=== PATIENT | female | born 1990 | race Caucasian/White ===

== ENCOUNTER 2020-08-29 11:53 | Emergency (ER) | payer MEDICAID, SELFPAY ==
[2020-08-29 13:06] VITALS: BP 148/91; PULSE 148; RESP 16; TEMP 36.9; O2SAT 99; BMI 30.4
--- NOTE | 2020-08-29 13:41 | ECG_ITS ---
Test Reason : ETOH Blood Pressure : / mmHG Vent. Rate : 113 BPM Atrial Rate : 113 BPM P-R Int : 140 ms QRS Dur : 090 ms QT Int : 326 ms P-R-T Axes : 066 041 039 degrees QTc Int : 447 ms Sinus tachycardia Otherwise normal ECG No previous ECGs available Referred By: Generic ED Physician Electronically Signed By:RADHA PRESTON
[2020-08-29] MEDS: 0.9 % Sodium Chloride 1,000 ML 999 ML IV (15:29)
--- NOTE | 2020-08-29 15:29 | ED_ITS ---
HPI - Alcohol General Chief Complaint: ETOH/Substance Use Stated Complaint: detox Time Seen by Provider: 08/29/20 15:19 Source: patient Mode of arrival: ambulatory Limitations: no limitations History of Present Illness HPI narrative: 30-year-old female who denies any past medical or surgical history presenting to review triage brought in by her mother for seeking alcohol detox. States due to the pandemic over the past year she has been very much isolated and due to this she has been drinking vodka about 1 pt a day and she would like detox. Last drink was at 09:00 this morning (several hours prior to arrival) no prior history of withdrawal. She currently denies any other complaints. MD complaint: alcohol intoxication and desires rehab Last drink: Unknown (Over the past year) Amount of alcohol consumed: A pt of vodka a day Chronic alcohol use: Yes Previous visits for alcohol intoxication: No Recent trauma: No Associated symptoms: denies other symptoms Treatments prior to arrival: none Related Data Previous Rx's Medication Instructions Recorded chlordiazepoxide HCl 5 mg PO Q8H PRN #14 cap 08/29/20 Allergies Allergy/AdvReac Type Severity Reaction Status Date / Time No Known Allergies Allergy Verified 08/29/20 15:27 Review of Systems 2 Review of Systems: Constitutional: No Weight loss, No Fever, No Chills, No Night Sweats, No Fatigue, No Malaise ENT/Mouth: No Hearing loss, No Ear Pain, No Nasal Congestion, No Sinus Pain, No Hoarseness, No sore throat, No Rhinorrhea, No Swallowing Difficulty Eyes: No Eye Pain, No Swelling, No Redness, No Foreign Body, No Discharge, No Vision Changes Cardiovascular: No Chest Pain, No SOB, No Dyspnea on Exertion, No Orthopnea, No Edema, No Palpitations Respiratory: No Cough, No Sputum, No Wheezing, No Smoke Exposure, No Dyspnea Gastrointestinal: No Nausea, No Vomiting, No Diarrhea, No Constipation, No abdominal Pain, No Hematochezia, No Melena Genitourinary: no irregular bleeding, No Dysuria, No Urinary Frequency, No Hematuria, No Urinary Incontinence, No Urgency, No Flank Pain, No Urinary Flow Changes, No Hesitancy Musculoskeletal: No joint pain, No Myalgias, No Joint Swelling Skin: No Skin Lesions, No rash Neuro: No Weakness, No Numbness, No Paresthesias, No Loss of Consciousness, No Dizziness, No Headache Psych: + Anxiety/Panic, No Depression, No SI/HI/AH/VH, No Social Issues Heme/Lymph: No Bruising, No Bleeding,No Lymphadenopathy Endocrine: No Polyuria, No Polydipsia, No Temperature Intolerance Yes all other systems are reviewed and are negative [facility] Past Medical History Medical History Anxiety Social History Social History Alcohol intake: current Alcohol intake frequency: a few times a month Alcohol type: hard liquor Smoking Status: Never smoker Use of substances other than those prescribed or required for medical reasons: No Advance Directives: No Advance Directives Information Provided: No Physical Exam Vital Signs: Vital Signs: Last Vital Signs Temp 98.2 F 08/29/20 17:16 Pulse 119 H 08/29/20 18:57 Resp 14 08/29/20 18:57 BP 131/82 08/29/20 18:57 Pulse Ox 99 08/29/20 18:57 Body Mass Index 30.4 Reviewed Const: Other: Bedside monitor tachycardic at 105 Giggling and smiling General: cooperative; No acute distress or intoxicated appearing Nutritional Appearance: average body habitus Orientation/consciousness: patient oriented x3 HENMT: Head: Yes normal to inspection Ears: hearing grossly normal bilaterally Eyes: General: appearance normal, both eyes and all related structures Visual Lei: normal visual lei by confrontation Neck: Neck: Yes normal visual inspection, No positive Brudzinski's sign, No positive Kernig's sign and No tender Thyroid: Thyroid normal Chest: Chest palpation & inspection: normal inspection of the chest Resp: Effort & Inspection: normal respiratory effort Auscultation: clear to auscultation bilaterally Cardio: Jugular venous distension: no JVD Rhythm: regular rhythm Heart sounds: S1 normal heart sound present and S2 normal heart sound present GI: Inspection: Yes normal to inspection Palpation (GI): Soft to palpation Percussion: Yes normal to percussion Auscultation: normal bowel sounds : General: Yes no CVA tenderness Back/Spine/Pelvis: Back: no CVA tenderness Skin: General skin exam: no rashes or lesions noted Neuro: General: patient oriented x3 Extrem: General: Yes normal to inspection Course Course Course Narrative: Labs with very slight hypokalemia was repleted also given banana bag equivalent. Has been resting comfortably in ED, alcohol in the high 200s. Patient was allowed to sleep in the ED for several hours after she was clinically sober evaluate the detox She states she has not want to go to detox she has been there once before and does not feel well. Would like to go home she does not have much of any withdrawal symptoms if she when she stops drinking. She plans on stopping drinking. She is requesting discharge with her mother. Aware that I can give her short course of Librium but she can not drink and to return if there is any concerns aware that that she has a higher success rate and I recommend her going to a controlled environment such as a detox center. Consultations Consultation #1: Peer assistant track coach MDM - Alcohol Lab Data Result diagrams: 08/29/20 15:37 08/29/20 15:36 Labs: Lab Results 08/29/20 08/29/20 08/29/20 Range/Units 15:36 15:36 15:37 WBC 4.8 (4.8-10.8) X10*3/uL RBC 4.45 (4.20-5.50) X10*6/uL Hgb 14.8 (12.0-16.0) g/dl Hct 43.1 (37-47) % MCV 96.9 (80-98) fL MCH 33.3 H (27.0-33.0) pg MCHC 34.3 (31.0-35.0) g/dl RDW 12.7 (11.0-16.0) % Plt Count 172 (160-400) X10*3/uL MPV 10.8 (9.4-12.3) fL Immature Gran % (Auto) 0.2 (0.0-0.4) % Neut % (Auto) 52.3 (45-73) % Lymph % (Auto) 40.9 H (20-40) % [place] % (Auto) 5.6 (2-11) % Eos % (Auto) 0.6 (0-4) % Baso % (Auto) 0.4 (0-2) % Lymph # (Auto) 2.0 (1.2-4.9) X10*3/uL [place] # (Auto) 0.3 (0.1-1.2) X10*3/uL Eos # (Auto) 0.0 (0.0-0.4) X10*3/uL Baso # (Auto) 0.0 (0.0-0.2) X10*3/uL Abs Immat Gran (auto) 0.01 (0.00-0.03) X10*3/uL Absolute Neuts (auto) 2.5 (2.0-8.3) X10*3/uL Absolute Nucleated RBC 0.000 (0.0-0.012) X10*3/uL Nucleated RBC % (auto) 0.0 (0.0-0.2) /100WBC Sodium 144 (135-145) mmol/L Potassium 3.2 L (3.3-5.1) mmol/L Chloride 101 (96-108) mmol/L Carbon Dioxide 23 (22-29) mmol/L Anion Gap 23 H (12-20) BUN 6 L (9-16) mg/dL Creatinine 0.64 (0.5-1.4) mg/dL Estim Creat Clear Calc 150.0 Estimated GFR > 60 Random Glucose 82 (60-115) mg/dL Calcium 9.0 (8.4-10.2) mg/dL Magnesium 1.9 (1.6-2.6) mg/dL Total Bilirubin 0.5 (0.0-1.0) mg/dL AST 78 H (5-31) U/L ALT 129 H (0-31) U/L Alkaline Phosphatase 68 (39-117) U/L Total Protein 7.6 (6.5-8.0) g/dL Albumin 4.6 (3.5-5.0) g/dL Lipase 8 (8-78) U/L Ethyl Alcohol 247 mg/dL Discharge Plan Discharge Clinical Impression: Alcoholic intoxication Patient Disposition: Home, Self-Care Instructions: Alcohol Intoxication (ED), Abuse of Alcohol (ED) Additional Instructions: Please go directly to detox Return if any concerns or worsening symptoms Follow-up with primary care doctor Thank Prescriptions: New chlordiazepoxide HCl 5 mg capsule 5 mg PO Q8H PRN (Reason: anxiety/alcohol withdrawal) Qty: 14 RF: 0 Referrals: George Farrell MD [Primary Care Provider] - 2 days
[2020-08-29 15:47] LABS: MANUAL DIFF FLAG NO
[2020-08-29] MEDS: LORazepam 2 MG/ML VIAL 1 MG IVPUSH (15:49)
[2020-08-29] MEDS: Folic Acid 1 MG TABLET PO (15:49)
[2020-08-29] MEDS: Thiamine HCL 100 MG TABLET PO (15:49)
[2020-08-29 15:54] LABS: Basophils Percent Auto 0.4 % (0-2); Eosinophils Percent Auto 0.6 % (0-4); Hematocrit 43.1 % (37-47); Hemoglobin 14.8 g/dl (12.0-16.0); Imm Gran Abs Auto 0.01 X10*3/uL (0.00-0.03); Imm Gran Pct Auto 0.2 % (0.0-0.4); Lymphocytes Percent Auto 40.9 % (20-40); Mean Corpuscular HGB Conc 34.3 g/dl (31.0-35.0); Mean Corpuscular Hemoglobin 33.3 pg (27.0-33.0); Mean Corpuscular Volume 96.9 fL (80-98); Mean Platelet Volume 10.8 fL (9.4-12.3); Monocytes Absolute Auto 0.3 X10*3/uL (0.1-1.2); Monocytes Percent Auto 5.6 % (2-11); Neutrophils Absolute Auto 2.5 X10*3/uL (2.0-8.3); Neutrophils Percent Auto 52.3 % (45-73); Platelet Count 172 X10*3/uL (160-400); Red Blood Count 4.45 X10*6/uL (4.20-5.50); Red Cell Distribution Width 12.7 % (11.0-16.0); White Blood Count 4.8 X10*3/uL (4.8-10.8)
[2020-08-29 16:14] LABS: Ethanol 247 mg/dL
[2020-08-29 16:20] LABS: Alanine Aminotransferase 129 U/L (0-31); Albumin Level 4.6 g/dL (3.5-5.0); Alkaline Phosphatase 68 U/L (39-117); Aspartate Amino Transferase 78 U/L (5-31); Bilirubin Total 0.5 mg/dL (0.0-1.0); Blood Urea Nitrogen 6 mg/dL (9-16); Estimated Glomerular Filt Rate > 60; Glucose Random 82 mg/dL (60-115); Total Protein 7.6 g/dL (6.5-8.0)
[2020-08-29 16:29] LABS: Anion Gap 23 (12-20); Carbon Dioxide 23 mmol/L (22-29); Chloride 101 mmol/L (96-108); Potassium 3.2 mmol/L (3.3-5.1); Sodium 144 mmol/L (135-145)
[2020-08-29 17:16] VITALS: BP 117/67; PULSE 98; RESP 14; TEMP 36.8; O2SAT 96
[2020-08-29] MEDS: Potassium Chloride ER 20 MEQ TAB.ER.PRT 40 MEQ PO (17:17)
[2020-08-29 17:41] LABS: Lipase 8 U/L (8-78); Magnesium 1.9 mg/dL (1.6-2.6)
--- NOTE | 2020-08-29 17:53 | MHC.RECOVSUP ---
? Reason for consult Detox o Current location: ED19 o Identified substance use concern: alcohol - Support ? Intervention: o Community resources provided o Harm reduction discussion ? Plan: o Patient to follow up with H after discharge ? Additional information: Patient denied going to detox... Provided patient with resources..
[2020-08-29 18:57] VITALS: BP 131/82; PULSE 119; RESP 14; O2SAT 99
== END 2020-08-29 20:27 | disposition home or self-care (01) ==
PROVIDERS: Nurse Practitioner Primary Care; Emergency Provider Emergency Medicine; PCP Family Medicine
DX: F10.120 Alcohol abuse with intoxication, uncomplicated (principal); Y90.8 Blood alcohol level of 240 mg/100 ml or more; E87.6 Hypokalemia; R00.0 Tachycardia, unspecified; F41.9 Anxiety disorder, unspecified
CPT/HCPCS: 36415; 80053; 80320; 83690; 83735; 85025; 93005; 96361; 96372; 96374; 99284; 99285; J2060

== ENCOUNTER 2020-09-09 13:27 | Emergency (ER) | payer MEDICAID, SELFPAY ==
--- NOTE | 2020-09-09 13:49 | ED_ITS ---
HPI - Psych General Chief Complaint: ETOH/Substance Use Stated Complaint: crisis Time Seen by Provider: 09/09/20 13:49 Source: patient Mode of arrival: ambulatory Limitations: no limitations History of Present Illness HPI Narrative: 30-year-old female who is history of alcohol abuse recently seen her on August 29 for seeking detox she presents with essentially same complaint today states she has tried: Several detox is and was unable to and was brought in by the direction of her mother to get assistance with detox here. She admits to drinking several hours prior to her of her she is admitting that she is very anxious and otherwise denies any other medical complaints. 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 She otherwise denies any SI or HI. No recent illnesses, injury/fall. MD complaint: alcohol abuse Onset (ago): week(s) Duration: intermittent History of same: Yes Relieving factors: none Exacerbating factors: none Context: recent alcohol abuse Associated psychiatric symptoms: none Associated symptoms: denies other symptoms Treatments prior to arrival: none Related Data Previous Rx's Medication Instructions Recorded chlordiazepoxide HCl 5 mg PO Q8H PRN #14 cap 08/29/20 Allergies Allergy/AdvReac Type Severity Reaction Status Date / Time No Known Allergies Allergy Verified 08/29/20 15:27 Review of Systems Review of Systems: Constitutional: No Weight loss, No Fever, No Chills, No Night Sweats, No Fatigue, No Malaise ENT/Mouth: No Hearing loss, No Ear Pain, No Nasal Congestion, No Sinus Pain, No Hoarseness, No sore throat, No Rhinorrhea, No Swallowing Difficulty Eyes: No Eye Pain, No Swelling, No Redness, No Foreign Body, No Discharge, No Vision Changes Cardiovascular: No Chest Pain, No SOB, No Dyspnea on Exertion, No Orthopnea, No Edema, No Palpitations Respiratory: No Cough, No Sputum, No Wheezing, No Smoke Exposure, No Dyspnea Gastrointestinal: No Nausea, No Vomiting, No Diarrhea, No Constipation, No abdominal Pain, No Hematochezia, No Melena Genitourinary: No Dysuria, No Urinary Frequency, No Hematuria, No Urinary Incontinence, No Urgency, No Flank Pain, No Urinary Flow Changes, No Hesitancy Musculoskeletal: No joint pain, No Myalgias, No Joint Swelling Skin: No Skin Lesions, No rash Neuro: No Weakness, No Numbness, No Paresthesias, No Loss of Consciousness, No Dizziness, No Headache Psych: No Anxiety/Panic, No Depression, No SI/HI/AH/VH Heme/Lymph: No Bruising, No Bleeding,No Lymphadenopathy Endocrine: No Polyuria, No Polydipsia, No Temperature Intolerance Yes all other systems are reviewed and are negative [facility] Past Medical History Medical History Anxiety Social History Social History Alcohol intake: current Alcohol intake frequency: 3 or more drinks per day Alcohol type: hard liquor Smoking Status: Never smoker Advance Directives: No Advance Directives Information Provided: No Physical Exam Vital Signs: Vital Signs: Last Vital Signs Temp 100.1 F 09/09/20 14:27 Pulse 138 H 09/09/20 14:27 Resp 18 09/09/20 14:27 BP 157/90 H 09/09/20 14:27 Pulse Ox 98 09/09/20 14:27 Body Mass Index 30.5 Patient was tachycardic and tearful upon arrival admits to being anxious hence the elevated heart rate but when she was talking to me her heart rate became lower as she come down at 99 BPM. Also temperature was 100.1 degrees temp orally however Orally was 98.2. Const: Other: Odor of EtOH General: cooperative and anxious; No acute distress or intoxicated appearing Nutritional Appearance: average body habitus Orientation/consciousness: patient oriented x3 HENMT: Head: Yes normal to inspection Ears: hearing grossly normal bilaterally Eyes: General: appearance normal, both eyes and all related structures Visual Lamar: normal visual lamar by confrontation Neck: Neck: Yes normal visual inspection, No positive Brudzinski's sign, No positive Kernig's sign and No tender Thyroid: Thyroid normal Chest: Chest palpation & inspection: normal inspection of the chest Resp: Effort & Inspection: normal respiratory effort Cardio: Jugular venous distension: no JVD Rhythm: regular rhythm Heart sounds: S1 normal heart sound present and S2 normal heart sound present GI: Inspection: Yes normal to inspection Palpation (GI): Soft to palpation Percussion: Yes normal to percussion Auscultation: normal bowel sounds : General: Yes no CVA tenderness Back/Spine/Pelvis: Back: no CVA tenderness Skin: General skin exam: no rashes or lesions noted Neuro: General: patient oriented x3 Extrem: General: Yes normal to inspection Course Reevaluation(s) Reevaluation #1: She is open to getting assistance from us in getting detox. Agrees to medical screening labs for clearance for detox center and speaking to football coach. Reevaluation #2: She male with football coach she declined their services she states she warranted a ?sleep it off? She is requesting discharge. Her alcohol upon arrival was 292 she has been sleeping for past 2 hours with stable vitals and offers no other complaints. Will be discharged home with parents. Consultations Consultation #1: Peer football coach MDM - Psych Lab Data Result diagrams: 09/09/20 14:28 09/09/20 14:28 Labs: Lab Results 09/09/20 09/09/20 09/09/20 Range/Units 14:28 14:28 14:28 WBC 4.4 L (4.8-10.8) X10*3/uL RBC 4.52 (4.20-5.50) X10*6/uL Hgb 15.2 (12.0-16.0) g/dl Hct 44.5 (37-47) % MCV 98.5 H (80-98) fL MCH 33.6 H (27.0-33.0) pg MCHC 34.2 (31.0-35.0) g/dl RDW 12.7 (11.0-16.0) % Plt Count 278 D (160-400) X10*3/uL MPV 10.1 (9.4-12.3) fL Immature Gran % (Auto) 0.2 (0.0-0.4) % Neut % (Auto) 50.9 (45-73) % Lymph % (Auto) 42.5 H (20-40) % [place] % (Auto) 4.6 (2-11) % Eos % (Auto) 0.7 (0-4) % Baso % (Auto) 1.1 (0-2) % Lymph # (Auto) 1.9 (1.2-4.9) X10*3/uL [place] # (Auto) 0.2 (0.1-1.2) X10*3/uL Eos # (Auto) 0.0 (0.0-0.4) X10*3/uL Baso # (Auto) 0.1 (0.0-0.2) X10*3/uL Abs Immat Gran (auto) 0.01 (0.00-0.03) X10*3/uL Absolute Neuts (auto) 2.2 (2.0-8.3) X10*3/uL Absolute Nucleated RBC 0.000 (0.0-0.012) X10*3/uL Nucleated RBC % (auto) 0.0 (0.0-0.2) /100WBC Sodium 147 H (135-145) mmol/L Potassium 3.7 (3.3-5.1) mmol/L Chloride 106 (96-108) mmol/L Carbon Dioxide 22 (22-29) mmol/L Anion Gap 23 H (12-20) BUN 7 L (9-16) mg/dL Creatinine 0.73 (0.5-1.4) mg/dL Estim Creat Clear Calc 131.8 Estimated GFR > 60 Random Glucose 82 (60-115) mg/dL Calcium 9.4 (8.4-10.2) mg/dL Total Bilirubin 0.3 (0.0-1.0) mg/dL AST 27 D (5-31) U/L ALT 45 H (0-31) U/L Alkaline Phosphatase 72 (39-117) U/L Total Protein 7.8 (6.5-8.0) g/dL Albumin 4.8 (3.5-5.0) g/dL Ethyl Alcohol mg/dL COVID-19 ([facility]) Negative (Negative) COVID-19 Clin Com See Note 09/09/20 Range/Units 14:28 WBC (4.8-10.8) X10*3/uL RBC (4.20-5.50) X10*6/uL Hgb (12.0-16.0) g/dl Hct (37-47) % MCV (80-98) fL MCH (27.0-33.0) pg MCHC (31.0-35.0) g/dl RDW (11.0-16.0) % Plt Count (160-400) X10*3/uL MPV (9.4-12.3) fL Immature Gran % (Auto) (0.0-0.4) % Neut % (Auto) (45-73) % Lymph % (Auto) (20-40) % [place] % (Auto) (2-11) % Eos % (Auto) (0-4) % Baso % (Auto) (0-2) % Lymph # (Auto) (1.2-4.9) X10*3/uL [place] # (Auto) (0.1-1.2) X10*3/uL Eos # (Auto) (0.0-0.4) X10*3/uL Baso # (Auto) (0.0-0.2) X10*3/uL Abs Immat Gran (auto) (0.00-0.03) X10*3/uL Absolute Neuts (auto) (2.0-8.3) X10*3/uL Absolute Nucleated RBC (0.0-0.012) X10*3/uL Nucleated RBC % (auto) (0.0-0.2) /100WBC Sodium (135-145) mmol/L Potassium (3.3-5.1) mmol/L Chloride (96-108) mmol/L Carbon Dioxide (22-29) mmol/L Anion Gap (12-20) BUN (9-16) mg/dL Creatinine (0.5-1.4) mg/dL Estim Creat Clear Calc Estimated GFR Random Glucose (60-115) mg/dL Calcium (8.4-10.2) mg/dL Total Bilirubin (0.0-1.0) mg/dL AST (5-31) U/L ALT (0-31) U/L Alkaline Phosphatase (39-117) U/L Total Protein (6.5-8.0) g/dL Albumin (3.5-5.0) g/dL Ethyl Alcohol 292 mg/dL COVID-19 ([facility]) (Negative) COVID-19 Clin Com Discharge Plan Discharge Clinical Impression: Alcohol abuse Alcoholic intoxication Qualifiers: Complication of substance-induced condition: with unspecified complication Qualified Code(s): F10.929 - Alcohol use, unspecified with intoxication, unspecified Patient Disposition: Home, Self-Care Instructions: Alcohol Use Disorder (ED) Additional Instructions: Please stop drinking alcohol as this can cause serious harm to health and even Please Dr. ahn Please return if any concerns or worsening symptoms Follow-up closely with her primary doctor in the next 1-2 days Return to emergency room again if she needed any further assistance Thank you Prescriptions: No Action chlordiazepoxide HCl 5 mg capsule 5 mg PO Q8H PRN (Reason: anxiety/alcohol withdrawal) Qty: 14 RF: 0 Referrals: George Farrell MD [Primary Care Provider] - 1 day
[2020-09-09 13:58] VITALS: BP 127/90; PULSE 115; RESP 18; TEMP 37.1; O2SAT 96
[2020-09-09 14:07] VITALS: BP 157/90; PULSE 138; RESP 18; TEMP 37.8; O2SAT 98; BMI 30.5
--- NOTE | 2020-09-09 14:15 | PC.NURSE ---
Pt meeting with alcon mace at current
[2020-09-09] MEDS: LORazepam 1 MG TABLET PO (14:22)
[2020-09-09 14:27] VITALS: BP 157/90; PULSE 138; RESP 18; TEMP 37.8; O2SAT 98
[2020-09-09 14:33] LABS: MANUAL DIFF FLAG NO
[2020-09-09 14:34] LABS: Basophils Absolute Auto 0.1 X10*3/uL (0.0-0.2); Basophils Percent Auto 1.1 % (0-2); Eosinophils Percent Auto 0.7 % (0-4); Hematocrit 44.5 % (37-47); Hemoglobin 15.2 g/dl (12.0-16.0); Imm Gran Abs Auto 0.01 X10*3/uL (0.00-0.03); Imm Gran Pct Auto 0.2 % (0.0-0.4); Lymphocytes Absolute Auto 1.9 X10*3/uL (1.2-4.9); Lymphocytes Percent Auto 42.5 % (20-40); Mean Corpuscular HGB Conc 34.2 g/dl (31.0-35.0); Mean Corpuscular Hemoglobin 33.6 pg (27.0-33.0); Mean Corpuscular Volume 98.5 fL (80-98); Mean Platelet Volume 10.1 fL (9.4-12.3); Monocytes Absolute Auto 0.2 X10*3/uL (0.1-1.2); Monocytes Percent Auto 4.6 % (2-11); Neutrophils Absolute Auto 2.2 X10*3/uL (2.0-8.3); Neutrophils Percent Auto 50.9 % (45-73); Platelet Count 278 X10*3/uL (160-400); Red Blood Count 4.52 X10*6/uL (4.20-5.50); Red Cell Distribution Width 12.7 % (11.0-16.0); White Blood Count 4.4 X10*3/uL (4.8-10.8)
--- NOTE | 2020-09-09 14:37 | MHC.RECOVSUP ---
Recovery Support note: Patient is a 30 year old Turkish speaking female who presented [place] [facility] seeking [place]. This rewriter met with patient in the [facility]BH pod to discuss alcohol use and treatment options. Patient reports drinking 10 drinks a day. Patient reports she has been to detox before and that it doesn't do anything for me. Explained to patient how every if she does not get much out of the groups, it is still important to be medically supervised while undergoing alcohol withdrawal. Patient acknowledged and stated that she could not find a bed so she figured she would come to the emergency department. Patient reported to this rewriter that she will most likely not stick around long enough to get a detox bed and reiterated that detox is not helpful for her. Discussed case with patient's RN and ED provider. This rewriter will follow up with patient later on to see if she is interested in detox at that point.
[2020-09-09 14:51] LABS: COVID-19 Test Negative (Negative)
[2020-09-09 14:54] LABS: Ethanol 292 mg/dL
[2020-09-09 15:26] LABS: Alanine Aminotransferase 45 U/L (0-31); Albumin Level 4.8 g/dL (3.5-5.0); Alkaline Phosphatase 72 U/L (39-117); Anion Gap 23 (12-20); Aspartate Amino Transferase 27 U/L (5-31); Bilirubin Total 0.3 mg/dL (0.0-1.0); Blood Urea Nitrogen 7 mg/dL (9-16); Calcium 9.4 mg/dL (8.4-10.2); Carbon Dioxide 22 mmol/L (22-29); Chloride 106 mmol/L (96-108); Creatinine Clr Calc Pharmacy 131.8; Estimated Glomerular Filt Rate > 60; Glucose Random 82 mg/dL (60-115); Potassium 3.7 mmol/L (3.3-5.1); Sodium 147 mmol/L (135-145); Total Protein 7.8 g/dL (6.5-8.0)
--- NOTE | 2020-09-09 16:29 | MHC.RECOVSUP ---
Recovery Support note: This freelance copywriter followed up with patient prior to discharge to discuss treatment options. Patient is familiar with recovery supports and the detox referral process and reports she does not need any information or resources at this time. Encouraged patient to consider herself and what will work well for her to support her recovery. Patient acknowledged.
== END 2020-09-09 16:41 | disposition home or self-care (01) ==
PROVIDERS: Nurse Practitioner Primary Care; Emergency Provider Emergency Medicine; PCP Family Medicine
DX: F10.120 Alcohol abuse with intoxication, uncomplicated (principal); Y90.8 Blood alcohol level of 240 mg/100 ml or more; Z20.822 Contact with and (suspected) exposure to COVID-19; R50.9 Fever, unspecified; F41.9 Anxiety disorder, unspecified; R00.0 Tachycardia, unspecified
CPT/HCPCS: 36415; 80053; 80320; 85025; 87635; 99284; 99285

== ENCOUNTER 2020-10-09 18:08 | Emergency (ER) | payer MEDICAID, SELFPAY ==
[2020-10-09 18:18] VITALS: BP 147/101; PULSE 127; RESP 16; TEMP 35.6; O2SAT 98; BMI 30.4
[2020-10-09 20:00] VITALS: BP 144/87; PULSE 120; RESP 16; TEMP 35.6; O2SAT 98
--- NOTE | 2020-10-09 21:08 | ED.ALCOHOL ---
HPI - Alcohol General Chief Complaint: ETOH/Substance Use Stated Complaint: mult symptoms Time Seen by Provider: 10/09/20 21:06 Source: patient Mode of arrival: ambulatory History of Present Illness HPI narrative: 30F PMH anxiety and alcohol dependence p/w request for alcohol detox. She denies any suicidal or homicidal ideation and tried calling outpatient programs prior to asking her mother to bring her to the ER. She denies any fevers, chills, SOB, chest pain, GI or symptoms. Related Data Previous Rx's Medication Instructions Recorded chlordiazepoxide HCl 5 mg capsule 5 mg PO Q8H PRN #14 cap 09/09/20 Allergies Allergy/AdvReac Type Severity Reaction Status Date / Time No Known Allergies Allergy Verified 08/29/20 15:27 Review of Systems Review of Systems: Pertinent positives and negatives as stated in HPI and 10 point ROS is otherwise negative. [facility] Past Medical History Source: nursing notes reviewed Medical History Anxiety Social History Social History Alcohol intake: current Alcohol intake frequency: 3 or more drinks per day Alcohol type: hard liquor Smoking Status: Never smoker Use of substances other than those prescribed or required for medical reasons: No Advance Directives: No Patient : No Physical Exam Vital Signs: Vital Signs: Last Vital Signs Temp 97.7 F 10/09/20 22:00 Pulse 102 H 10/10/20 03:56 Resp 20 10/10/20 03:56 BP 132/76 10/10/20 03:56 Pulse Ox 99 10/10/20 03:56 Body Mass Index 30.4 VITAL SIGNS: Reviewed. GENERAL: Well developed, well nourished, in no acute distress. HEAD: Normocephalic/atraumatic EYES: PERRLA, EOMI EARS: Ext canals without abnormality NOSE: Nares patent bilateral OROPHARYNX: no oral lesions noted, posterior pharynx clear NECK: Supple, no adenopathy LUNGS: Normal breath sounds. No adventitious sounds or accessory muscle use. SpO2<98> CARDIOVASCULAR: Regular rate and rhythm without noted murmurs ABDOMEN: Soft, non-tender, non-distended with bowel sounds. PSYCH: Tearful, normal affect, logical thought process Course Course Course Narrative: 30-year-old female history and clinical presentation consistent with alcohol dependence and requesting outpatient detox. In addition, patient is currently experiencing nausea and vomiting secondary to alcohol ingestion. Review of all investigations negative for acute findings, the noted elevated glucose likely secondary to patient's ingestion Kazakh dry arturo ozzie prior to presentation. Nausea and vomiting controlled, patient able to tolerate, legal recovery specialist saw the patient and the plan is for her to follow-up and start Vivitrol tomorrow. She declined other outpatient detox options. MDM - Alcohol Lab Data Result diagrams: 10/09/20 21:48 10/09/20 21:48 Labs: Lab Results 10/09/20 10/09/20 10/09/20 Range/Units 21:48 21:48 21:48 WBC 6.3 (4.8-10.8) X10*3/uL RBC 4.02 L (4.20-5.50) X10*6/uL Hgb 14.0 (12.0-16.0) g/dl Hct 39.6 (37-47) % MCV 98.5 H (80-98) fL MCH 34.8 H (27.0-33.0) pg MCHC 35.4 H (31.0-35.0) g/dl RDW 12.9 (11.0-16.0) % Plt Count 334 (160-400) X10*3/uL MPV 10.1 (9.4-12.3) fL Immature Gran % (Auto) 0.2 (0.0-0.4) % Neut % (Auto) 64.3 (45-73) % Lymph % (Auto) 25.3 (20-40) % [place] % (Auto) 8.1 (2-11) % Eos % (Auto) 1.1 (0-4) % Baso % (Auto) 1.0 (0-2) % Lymph # (Auto) 1.6 (1.2-4.9) X10*3/uL [place] # (Auto) 0.5 (0.1-1.2) X10*3/uL Eos # (Auto) 0.1 (0.0-0.4) X10*3/uL Baso # (Auto) 0.1 (0.0-0.2) X10*3/uL Abs Immat Gran (auto) 0.01 (0.00-0.03) X10*3/uL Absolute Neuts (auto) 4.1 (2.0-8.3) X10*3/uL Absolute Nucleated RBC 0.000 (0.0-0.012) X10*3/uL Nucleated RBC % (auto) 0.0 (0.0-0.2) /100WBC Sodium 140 (135-145) mmol/L Potassium 4.2 (3.3-5.1) mmol/L Chloride 100 (96-108) mmol/L Carbon Dioxide 19 L (22-29) mmol/L Anion Gap 25 H (12-20) BUN 6 L (9-16) mg/dL Creatinine 0.72 (0.5-1.4) mg/dL Estim Creat Clear Calc 133.4 Estimated GFR > 60 Random Glucose 202 H D (60-115) mg/dL Calcium 9.1 (8.4-10.2) mg/dL Total Bilirubin 0.5 (0.0-1.0) mg/dL AST 88 H (5-31) U/L ALT 109 H (0-31) U/L Alkaline Phosphatase 73 (39-117) U/L Total Protein 7.8 (6.5-8.0) g/dL Albumin 4.7 (3.5-5.0) g/dL Lipase 15 (8-78) U/L Ethyl Alcohol 252 mg/dL Discharge Plan Discharge Clinical Impression: Alcoholic intoxication Patient Disposition: Home, Self-Care Instructions: Alcohol Dependence (ED), Alcohol Intoxication (ED) Additional Instructions: Follow-up with your primary care provider in the next 1-2 days for re-evaluation. Keep your appointment to start Vivitrol today. Return to the ER for acute worsening of your symptoms. Prescriptions: No Action chlordiazepoxide HCl 5 mg capsule 5 mg PO Q8H PRN (Reason: anxiety/alcohol withdrawal) Qty: 14 RF: 0 Referrals: Physician,None [Primary Care Provider] - 2 days
--- NOTE | 2020-10-09 21:35 | MHC.RECOVSUP ---
? Reason for consult Support o Current location: ED22H o Identified substance use concern: Alcohol - Withdrawal - Support ? Intervention: o Community resources provided o Harm reduction discussion ? Plan: o Referral to [facility] o Follow up tomorrow with [facility] o Patient to follow up with H after discharge ? Additional information: Patient came to the ED looking for help with the withdraw of alcohol.. Patient is interested in starting MAT Vitriol.. I spoke and gave patient information about the [facility]. Patient stated that she willing to give it a try. A follow up call could be needed [phone]
[2020-10-09] MEDS: ondansetron HCL 4 MG/2 ML VIAL IVPUSH ×2 (21:53→22:40)
[2020-10-09] MEDS: 0.9 % Sodium Chloride 2,000 ML 999 ML IV (21:53)
[2020-10-09 21:54] LABS: MANUAL DIFF FLAG NO
[2020-10-09 21:55] LABS: Basophils Absolute Auto 0.1 X10*3/uL (0.0-0.2); Eosinophils Absolute Auto 0.1 X10*3/uL (0.0-0.4); Eosinophils Percent Auto 1.1 % (0-4); Hematocrit 39.6 % (37-47); Imm Gran Abs Auto 0.01 X10*3/uL (0.00-0.03); Imm Gran Pct Auto 0.2 % (0.0-0.4); Lymphocytes Absolute Auto 1.6 X10*3/uL (1.2-4.9); Lymphocytes Percent Auto 25.3 % (20-40); Mean Corpuscular HGB Conc 35.4 g/dl (31.0-35.0); Mean Corpuscular Hemoglobin 34.8 pg (27.0-33.0); Mean Corpuscular Volume 98.5 fL (80-98); Mean Platelet Volume 10.1 fL (9.4-12.3); Monocytes Absolute Auto 0.5 X10*3/uL (0.1-1.2); Monocytes Percent Auto 8.1 % (2-11); Neutrophils Absolute Auto 4.1 X10*3/uL (2.0-8.3); Neutrophils Percent Auto 64.3 % (45-73); Platelet Count 334 X10*3/uL (160-400); Red Blood Count 4.02 X10*6/uL (4.20-5.50); Red Cell Distribution Width 12.9 % (11.0-16.0); White Blood Count 6.3 X10*3/uL (4.8-10.8)
[2020-10-09 22:00] VITALS: BP 137/78; PULSE 72; RESP 16; TEMP 36.5; O2SAT 99
[2020-10-09 22:16] LABS: Ethanol 252 mg/dL
[2020-10-09 22:23] LABS: Alanine Aminotransferase 109 U/L (0-31); Albumin Level 4.7 g/dL (3.5-5.0); Alkaline Phosphatase 73 U/L (39-117); Anion Gap 25 (12-20); Aspartate Amino Transferase 88 U/L (5-31); Bilirubin Total 0.5 mg/dL (0.0-1.0); Blood Urea Nitrogen 6 mg/dL (9-16); Calcium 9.1 mg/dL (8.4-10.2); Carbon Dioxide 19 mmol/L (22-29); Chloride 100 mmol/L (96-108); Creatinine Clr Calc Pharmacy 133.4; Estimated Glomerular Filt Rate > 60; Glucose Random 202 mg/dL (60-115); Lipase 15 U/L (8-78); Potassium 4.2 mmol/L (3.3-5.1); Sodium 140 mmol/L (135-145); Total Protein 7.8 g/dL (6.5-8.0)
[2020-10-09] MEDS: diphenhydrAMINE HCL 50 MG/ML VIAL 25 MG IVPUSH (23:52)
[2020-10-10] VITALS: RESP 20
[2020-10-10 03:56] VITALS: BP 132/76; PULSE 102; RESP 20; O2SAT 99
--- NOTE | 2020-10-10 04:05 | PC.NURSE ---
pt has very faint visable tremors, nause and vomiting. pt feels that she is withdrawing, pt drinks a pint of vodka a day. last drink was 10/09/20 at 1000.
== END 2020-10-10 04:53 | disposition home or self-care (01) ==
PROVIDERS: Emergency Provider Student in an Organized Health Care Education/Training Program
DX: F10.220 Alcohol dependence with intoxication, uncomplicated (principal); Y90.8 Blood alcohol level of 240 mg/100 ml or more; R11.2 Nausea with vomiting, unspecified
CPT/HCPCS: 36415; 80053; 80320; 83690; 85025; 96361; 96374; 96375; 96376; 99285; J1200; J2405

== ENCOUNTER 2020-10-13 08:00 | Outpatient (RCR) | payer OTHER, SELFPAY ==
--- NOTE | 2020-10-11 13:41 | HO.PS.ADMBH ---
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 During the interview, the patient reported panic attacks and anxiety since 2016 but she was drinking heavely since she was on college, after 2011. She complained of anxiety, dysphoria, poor sleep and lack of energy. She was prescribed with several SSRIS is the past and other medications that she is not compliant such as vitamins, Campral, Trazodone and others. During the intake she denied safety concerns, she denied psychotic or hypomania. We discussed options and she agreed to try Remeron and Naltrexone. Past Psychiatric History: Her first psychiatric contact was in 2015 while she was on college for a panic attack. Denies inpatient psychiatric admissions. She had sporadic outpatient providers in the past. Medical Evaluation Reviewed: Yes COUNTS INCLUDE 234 BEDS AT THE [facility] Medical History Alcoholic hepatitis Alcoholic ketoacidosis Anxiety Leukopenia Family History: Father is alcoholic Social History: The patient is the oldest of 2 siblings, her milestones were achieved at expected age, she was raised by her parents and she reported a chaotic childhood since her father abused of alcohol. She was a good student, graduated from high school and attended college. Substance History: Alcohol, started as a teenager, she started using more in college, she has at least 2 detox in this year. She has tried Naltrexone and Campral in the past. Denies DTs but she has medical complications due to alcohol abuse Trauma History: Denies Meds/Allergies Allergies Allergies Allergy/AdvReac Type Severity Reaction Status Date / Time No Known Allergies Allergy Verified 08/29/20 15:27 Mental Status Exam Mental Status Exam Patient Appearance: Well Grooomed Patient Orientation: Person, Place, Time and Situation Level of Consciousness: Awake and Appropriate Patient Behavior: Appropriate and Cooperative Mood Description: Calm Affect Description: Constricted Patient Cognition Impaired: No Ability to Follow Directions: Good Speech Pattern: Clear Memory Description: Intact Hallucinations: None Delusions: Not Present Thought Content: positive for Intact Judgement: Fair Assessment & Plan Assessment & Plan (1) Alcohol dependence: Status: Acute Code(s): F10.20 - Alcohol dependence, uncomplicated Assessment and Plan: Adult female, at baseline highly functional with alcohol use disorder and anxiety. She was recently discharged in September 2020 from [facility] for alcohol intoxication with several comorbilities, referred to [facility] for continuation of treatment. On admission, she was non-compliant with vitamins and medications. Plan: Start Remeron 15 mg po qhs to target insomnia and dysphoria. Start Naltrexone 50 mg po for craving of alcohol. On the next visit, we will address if we have to increase Remeron and probably adding Gabapentin for anxiety/alcohol use disorder (2) Generalized anxiety disorder: Status: Acute Code(s): F41.1 - Generalized anxiety disorder Certification I certify that partial hospital treatment is medically necessary due to the symptoms and problems resulting from the patient's mental illness and the failure to treat the patient at the partial hospital level of care would likely result in the patient requiring inpatient psychiatric care which could not be prevented at a less intensive level of care. Telehealth Telehealth Location of provider rendering services: practice address Location of patient: address on file Patient Identification confirmed using: Name, : Yes Telehealth method: video Patient verbally consented to treatment: Yes Patient verbally consented to billing insurance company: Yes Patient informed of any privacy concerns related to visit: No Time spent with patient (mins): 45
--- NOTE | 2020-10-12 10:50 | PC.NURSE ---
Patient interested in Vivitrol injections and wanted staff assistance in making an appointment with the [facility]. Spoke to Geetha NEWBY at [facility] who will be calling patient to make an appointment for medication assisted treatment.
--- NOTE | 2020-10-12 11:33 | PC.ADMIT ---
Patient is a 30 year old female who was admitted to [facility] and discharged on 09/28/20. Patient was admitted for alcohol intoxication and withdrawal. BAL 325. Patient diagnosis included Alcoholic ketoacidosis, alcoholic hepatitis, and leukopenia. 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 She stated covid hit and she was unable to find a job. Reports self medicating with alcohol binge drinking for a few days at a time then would be sober for a few weeks and continue the cycle. Reports when drinking she would drink a pint pf alcohol a day and that is how she would cope with her feelings. Stated her mother suffers from anxiety and her father is an alcoholic. Since discharge from the hospital patient has not been taking any medications including vitamins. Dr Wellington is aware. Patient does not have a prescriber and patient reports PCP would not prescribe her medications. Patient does however have a new prescriber appointment on November 08, 2020 at 0900. Patient agreed to start taking the vitamins. Patient is alert and oriented x4. Presents with depressed mood, anxious affect. Denied SI. Patient gave verbal permission to email her a copy of her safety plan. Patient interested in seeking medication assisted treatment with Vivitrol injections and requested staff assistance in setting up an appointment with the [facility]. Spoke with Geetha Retana from [facility] who will be contacting patient regarding an appointment.
--- NOTE | 2020-10-12 14:44 | PC.NURSE ---
case opened in treatment team
--- NOTE | 2020-10-18 07:35 | PC.NURSE ---
Client called out due to physical illness
--- NOTE | 2020-10-19 13:20 | PC.NURSE ---
Hazel called this morning to say that she is drank alcohol this am and does not feel as if the program is enough to help her stay sober. She sates that she does not want to go to a substance IOP . She agrees to be discharged at this time and will continue with her outpatient therapist.
== END 2020-10-20 08:14 | disposition home or self-care (01) ==
LOC: HO.PHPA 08:00
PROVIDERS: PCP Family Medicine; Visit Provider Psychiatry & Neurology Psychiatry
DX: F41.1 Generalized anxiety disorder (principal); F10.20 Alcohol dependence, uncomplicated; Z91.14 Patient's other noncompliance with medication regimen
CPT/HCPCS: 90791; 90853

== ENCOUNTER 2024-04-05 18:21 | Emergency (ER) | payer OTHER, SELFPAY ==
--- NOTE | 2024-04-05 18:28 | ECG_ITS ---
Test Reason : CHEST PAIN Blood Pressure : / mmHG Vent. Rate : 120 BPM Atrial Rate : 120 BPM P-R Int : 142 ms QRS Dur : 080 ms QT Int : 298 ms P-R-T Axes : 035 -16 018 degrees QTc Int : 421 ms Sinus tachycardia Inferior infarct , age undetermined Abnormal ECG When compared with ECG of 29-AUG-2020 15:19, Inferior infarct is now Present Nonspecific T wave abnormality now evident in Anterior leads Referred By: Generic ED Physician Electronically Signed By:NICCI AGUILAR MD
[2024-04-05 18:30] VITALS: BP 113/80; PULSE 100; O2SAT 96
--- NOTE | 2024-04-05 18:40 | ED.ALCOHOL ---
HPI - Alcohol General Chief Complaint: ETOH/Substance Use Stated Complaint: etoh chest pain Time Seen by Provider: 04/05/24 18:34 History of Present Illness HPI narrative: Patient is a 33-year-old female with a history of anxiety history of alcohol dependence presented today grossly intoxicated at home. Family called ambulance. Patient supposedly drank 1.75 L of vodka. Got into an argument with family. Related Data Home Medications ?Medication ?Instructions ?Recorded ?Confirmed folic acid 1 mg tablet 1 mg PO DAILY 10/11/20 10/11/20 multivitamin 1 tab PO DAILY 10/11/20 10/11/20 pyridoxine (vitamin B6) 50 mg 50 mg PO DAILY 10/11/20 10/11/20 capsule (Vitamin B-6) thiamine HCl (vitamin B1) 100 mg 100 mg PO BID 10/11/20 10/11/20 tablet Previous Rx's ?Medication ?Instructions ?Recorded mirtazapine 15 mg tablet (Remeron) 15 mg PO BEDTIME #7 tabs 10/11/20 naltrexone 50 mg tablet 50 mg PO DAILY #7 tabs 10/11/20 Allergies Allergy/AdvReac Type Severity Reaction Status Date / Time minocycline Allergy Rash Verified 04/05/24 19:05 Review of Systems Review of Systems: No fever no chills no diaphoresis Yes all other systems are reviewed and are negative [facility] Past Medical History Attestation statement: The following information was validated with the patient. Medical History Leukopenia Alcoholic hepatitis Alcoholic ketoacidosis Anxiety Social History Social History Household Members: Family Alcohol intake: current Alcohol intake frequency: 3 or more drinks per day Alcohol type: hard liquor Patient Tobacco Use Status: Tobacco use Unknown Advance Directives: No Advance Directives Information Provided: No Physical Exam ED Vital Signs: Vital Signs - 24 hr 04/05/24 19:03 04/05/24 19:55 04/05/24 23:59 Temperature 97.6 F Pulse Rate 108 H 114 H Respiratory Rate 20 18 18 Blood Pressure 138/84 Pulse Oximetry 95 94 Oxygen Delivery Method Room Air Room Air BMI result Body Mass Index 30.4 Appearance: Alert. Oriented X3. No acute distress. Eyes: Pupils equal, round and reactive to light. ENT: Pharynx normal. Neck: Normal inspection. Neck supple. No lymph nodes noted. No crepitus CVS: Normal heart rate and rhythm. Pulses normal. Normal S1 and S2 Respiratory: No respiratory distress. Breath sounds normal. No Wheezing. No rales Abdomen: Soft and nontender. No rigidity. No distention. good BS x4 Skin: Skin warm and dry. Normal skin color. Normal skin turgor. Extremities: No lower extremity edema. Neurovascular intact to all extremities. No Lacerations. No Rash Neuro: Oriented X 3. No motor deficit. No sensory deficit. Moving all extermities. No slurred speech Medical Decision Making Medical Decision Making [facility] Narrative: Patient extremely agitated. Attempted to escape from the emergency department. Will requiring multiple airport security screener. Yelling and screaming. Attempted the verbally deescalate the situation to no avail. Patient was ordered 5 of Haldol to Ativan and 50 of Benadryl. Labs ordered. Patient became more sedated. Sleeping. In no acute distress. Labs showed an elevated alcohol level greater than 300. Patient is currently sleeping. No SI no HI reported. Will discharge patient when patient is clinically sober Differential Diagnosis Differential Diagnoses: The differential diagnosis associated with the presentation includes Alcohol intoxication Admission/Observation Consideration of admission/observation: Escalation of care including admission/observation considered Lab Data [facility] Lab Attestation statement: I reviewed the patient's lab results. 04/05/24 20:12 04/05/24 20:12 Labs: Lab Results 04/05/24 04/06/24 Range/Units 20:12 00:26 WBC 5.0 (4.8-10.8) X10*3/uL RBC 4.19 L (4.20-5.50) X10*6/uL Hgb 13.9 (12.0-16.0) g/dl Hct 39.8 (37.0-47.0) % MCV 95.0 (80.0-98.0) fL MCH 33.2 H (27.0-33.0) pg MCHC 34.9 (31.0-35.0) g/dl RDW 13.2 (11.0-16.0) % Plt Count 215 (160-400) X10*3/uL MPV 9.9 (9.4-12.3) fL Immature Gran % (Auto) 0.2 (0.0-0.4) % Neut % (Auto) 55.9 (45-73) % Lymph % (Auto) 35.7 (20-40) % [place] % (Auto) 7.0 (2-11) % Eos % (Auto) 0.2 (0-4) % Baso % (Auto) 1.0 (0-2) % Lymph # (Auto) 1.8 (1.2-4.9) X10*3/uL [place] # (Auto) 0.4 (0.1-1.2) X10*3/uL Eos # (Auto) 0.0 (0.0-0.4) X10*3/uL Baso # (Auto) 0.1 (0.0-0.2) X10*3/uL Abs Immat Gran (auto) 0.01 (0.00-0.03) X10*3/uL Absolute Neuts (auto) 2.8 (2.0-8.3) x10*3/uL Absolute Nucleated RBC 0.000 (0.0-0.012) X10*3/uL Nucleated RBC % (auto) 0.0 (0.0-0.2) /100WBC Sodium 141 (135-145) mmol/L Potassium 3.8 (3.3-5.1) mmol/L Chloride 104 (96-108) mmol/L Carbon Dioxide 18 L (22-29) mmol/L Anion Gap 23 H (12-20) BUN 7 L (9-16) mg/dL Creatinine 0.63 (0.5-1.4) mg/dL Estim Creat Clear Calc 148.2 Estimated GFR > 60 Random Glucose 73 (60-115) mg/dL Calcium 8.7 (8.4-10.2) mg/dL Total Bilirubin 0.2 (0.0-1.0) mg/dL Direct Bilirubin < 0.2 (0.0-0.5) mg/dL AST 49 H (5-31) U/L ALT 34 H (0-31) U/L Alkaline Phosphatase 82 (39-117) U/L Total Protein 7.2 (6.5-8.0) g/dL Albumin 4.3 (3.5-5.0) g/dL Beta HCG, Quant < 2 mIU/mL Urine Color Yellow Urine Appearance Cloudy Urine pH 5.0 (5.0-9.0) Ur Specific [place] 1.020 (1.005-1.025) Urine Protein 30 (1+) H (Neg-Trace) mg/dL Urine Glucose (UA) Negative (Negative) mg/dL Urine Ketones 15 (Negative) mg/dL Urine Blood Negative (Negative) Urine Nitrite Negative (Negative) Ur Leukocyte Esterase Negative (Negative) Urine RBC 0-2 (0-2) /HPF Urine WBC 0-5 (0-5) /HPF Ur Squamous Epith Cells 11-20 (0-2) /HPF Urine Bacteria 4+ (None Seen) Hyaline Casts 3-5 (0-2) /LPF Urine Opiates Screen Not Detected (Not Detect) Ur Buprenorphine Scrn Not Detected (Not Detect) ng/mL Ur Oxycodone Screen Not Detected (Not Detect) ng/mL Urine Methadone Screen Not Detected (Not Detect) ng/mL Urine Fentanyl Screen Not Detected (Not Detect) Ur Barbiturates Screen POSITIVE H (Not Detect) Ur Phencyclidine Scrn Not Detected (Not Detect) Ur Amphetamines Screen Not Detected (Not Detect) U Benzodiazepines Scrn Not Detected (Not Detect) Urine Cocaine Screen Not Detected (Not Detect) U Marijuana (THC) Screen Not Detected (Not Detect) Ethyl Alcohol 307 H* mg/dL External Record Review External record reviewed: Inpatient record (Previous psychiatric record reviewed) Social Determinants Patient?s care significantly limited by Social Determinants of Health including: Alcoholism and drug addiction in family and Unemployment Medications Administered Discontinued Medications Generic Name Dose Route Start Last Admin Trade Name Freq PRN Reason Stop Dose Admin Diphenhydramine HCl 50 mg 04/05/24 18:44 04/05/24 18:55 Diphenhydramine Hcl 50 Mg/Ml Vial IM 04/05/24 18:45 50 mg ONCE ONE Administration Haloperidol Lactate 5 mg 04/05/24 18:44 04/05/24 18:55 Haloperidol Lactate 5 Mg/Ml Vial IM 04/05/24 18:45 5 mg ONCE ONE Administration Sodium Chloride 1,000 mls @ 999 mls/hr 04/05/24 18:45 04/05/24 21:03 Ns IV 04/05/24 19:45 Not Given .Q1H1M DAVON Lorazepam 2 mg 04/05/24 18:44 04/05/24 18:55 Lorazepam 2 Mg/Ml Vial IM 04/05/24 18:45 2 mg ONCE ONE Administration Discharge Plan Discharge Clinical Impression: Alcohol dependence, Alcoholic intoxication Patient Disposition: Still a Patient Instructions: Abuse of Alcohol (ED) Additional Instructions: Please stop drinking alcohol. Please go to detox Prescriptions: No Action mirtazapine [Remeron] 15 mg tablet 15 mg PO BEDTIME Qty: 7 1RF naltrexone 50 mg tablet 50 mg PO DAILY Qty: 7 1RF multivitamin Tablet 1 tab PO DAILY thiamine HCl (vitamin B1) 100 mg Tablet 100 mg PO BID folic acid 1 mg Tablet 1 mg PO DAILY Vitamin B-6 50 mg Capsule 50 mg PO DAILY Referrals: [facility] [Primary Care Provider] - 04/08/24 Print Language: Arabic
--- NOTE | 2024-04-05 18:42 | PC.NURSE ---
patient changed in hospital attire, refused to help. patient changed with security
[2024-04-05] MEDS: diphenhydrAMINE HCL 50 MG/ML VIAL IM (18:55)
[2024-04-05] MEDS: LORazepam 2 MG/ML VIAL IM (18:55)
[2024-04-05] MEDS: Haloperidol Lactate 5 MG/ML VIAL IM (18:55)
--- NOTE | 2024-04-05 18:55 | PC.NURSE ---
patient attempted to elope off of unit, had to be walked back by security. patient yelling and swearing at staff. patient then began yelling at other patients and disrupting unit. patient then moved into [facility] from [facility].
[2024-04-05 19:03] VITALS: RESP 20; BMI 30.4
--- NOTE | 2024-04-05 19:07 | PC.NURSE ---
patient attempted to elope off of unit, had to be walked back by security. patient yelling and swearing at staff. patient then began yelling at other patients and disrupting unit. patient then moved into [facility] from [facility].
--- NOTE | 2024-04-05 19:12 | PC.NURSE ---
patient belongings placed on shelf 4
--- NOTE | 2024-04-05 19:46 | PC.NURSE ---
assumed care of pt at 1910. pt was previously given IM medications for yelling, attempting to flee dept, aggressive with staff, risk of safety to self and others. continuing med restraint form from previous RN Anjana. at this time 19:45 pt is now resting on stretcher, more calm, 1:1 sitter at bedside. pt continues to refuse labs/iv/interventions at this time.
[2024-04-05 19:55] VITALS: PULSE 108; RESP 18; O2SAT 95
[2024-04-05 20:16] LABS: MANUAL DIFF FLAG NO
[2024-04-05 20:17] LABS: Basophils Absolute Auto 0.1 X10*3/uL (0.0-0.2); Eosinophils Percent Auto 0.2 % (0-4); Hematocrit 39.8 % (37.0-47.0); Hemoglobin 13.9 g/dl (12.0-16.0); Imm Gran Abs Auto 0.01 X10*3/uL (0.00-0.03); Imm Gran Pct Auto 0.2 % (0.0-0.4); Lymphocytes Absolute Auto 1.8 X10*3/uL (1.2-4.9); Lymphocytes Percent Auto 35.7 % (20-40); Mean Corpuscular HGB Conc 34.9 g/dl (31.0-35.0); Mean Corpuscular Hemoglobin 33.2 pg (27.0-33.0); Mean Platelet Volume 9.9 fL (9.4-12.3); Monocytes Absolute Auto 0.4 X10*3/uL (0.1-1.2); Neutrophils Absolute Auto 2.8 x10*3/uL (2.0-8.3); Neutrophils Percent Auto 55.9 % (45-73); Platelet Count 215 X10*3/uL (160-400); Red Blood Count 4.19 X10*6/uL (4.20-5.50); Red Cell Distribution Width 13.2 % (11.0-16.0)
[2024-04-05 20:38] LABS: Alanine Aminotransferase 34 U/L (0-31); Albumin Level 4.3 g/dL (3.5-5.0); Alkaline Phosphatase 82 U/L (39-117); Anion Gap 23 (12-20); Aspartate Amino Transferase 49 U/L (5-31); Bilirubin Direct < 0.2 mg/dL (0.0-0.5); Bilirubin Total 0.2 mg/dL (0.0-1.0); Blood Urea Nitrogen 7 mg/dL (9-16); Calcium 8.7 mg/dL (8.4-10.2); Carbon Dioxide 18 mmol/L (22-29); Chloride 104 mmol/L (96-108); Creatinine Clr Calc Pharmacy 148.2; Estimated Glomerular Filt Rate > 60; Ethanol 307 mg/dL; Glucose Random 73 mg/dL (60-115); Potassium 3.8 mmol/L (3.3-5.1); Sodium 141 mmol/L (135-145); Total Protein 7.2 g/dL (6.5-8.0)
[2024-04-05 20:49] LABS: HCG Quantitative < 2 mIU/mL
[2024-04-05 23:59] VITALS: BP 138/84; PULSE 114; RESP 18; TEMP 36.4; O2SAT 94
[2024-04-06 00:42] LABS: Appearance Urine Cloudy; Color Urine Yellow; Glucose Urine UA Negative (Negative); Leukocyte Esterase Urine Negative (Negative); Nitrite Urine Negative (Negative); UMIC TRIGGER UACC YES; Urine Blood Negative (Negative); Urine Ketones 15 mg/dL (Negative); Urine Protein 30 (1+) mg/dL (Neg-Trace)
[2024-04-06 00:56] LABS: Bacteria Urine 4+ (None Seen); RBC Urine 0-2 /HPF (0-2); WBC Urine 0-5 /HPF (0-5)
[2024-04-06 01:08] LABS: Amphetamine Screen Urine Not Detected (Not Detect); Barbiturates, Urine POSITIVE (Not Detect); Benzodiazepines Screen Urine Not Detected (Not Detect); Buprenorphine Scr Not Detected (Not Detect); Cannabinoid Screen Urine Not Detected (Not Detect); Cocaine Screen Urine Not Detected (Not Detect); Fentanyl, urine Not Detected (Not Detect); Methadone Screen, Urine Not Detected (Not Detect); Opiate Screen Urine Not Detected (Not Detect); Oxycodone Screen Urine Not Detected (Not Detect); Phencyclidine Screen Urine Not Detected (Not Detect)
[2024-04-06] MEDS: Ondansetron ODT 4 MG TAB.RAPDIS TRANSLINGU (03:32)
--- NOTE | 2024-04-06 03:54 | PC.NURSE ---
patient more awake, alert, drinking arturo ozzie. asking to go home, asking for belongings/phone to call for a ride. jet operator aware. Md Taveras assessing pt and put in discharge, as pt clinically sober now.
--- NOTE | 2024-04-06 04:28 | PC.NURSE ---
pt ambulates to and from bathroom with a steady gait. called for ride however ride unable to pick her up until 7a. changed into regular clothes as she is discharged. weigh and charge worker aware
[2024-04-06 05:38] VITALS: BP 148/91; PULSE 101; RESP 14; TEMP 36.9; O2SAT 96
--- NOTE | 2024-04-06 06:42 | PC.NURSE ---
pt now reporting withdrawal symptoms, says she is anxious, tremulous, seeing things that aren't there. pt says she drinks everyday for the past 6 months. drinks vodka daily. usually does not go through w/d symptoms as she continues to drink or tapers from drinking alcohol when symptoms arise. pt has never been to detox but is hoping to. MD Tavears aware and at bedside assessing pt . will order ativan po
[2024-04-06] MEDS: LORazepam 1 MG TABLET 2 MG PO (06:55)
--- NOTE | 2024-04-06 08:20 | PC.NURSE ---
Patient requesting discharge home, states feels much better after ativan and does not want to wait for middle school coach. Provider aware
[2024-04-06 08:25] VITALS: BP 141/76; PULSE 113; RESP 18; TEMP 37.1; O2SAT 96
[2024-04-06 08:35] VITALS: BP 141/76; PULSE 113; RESP 18; TEMP 37.1; O2SAT 98
== END 2024-04-06 08:36 | disposition home or self-care (01) ==
PROVIDERS: Emergency Provider Emergency Medicine Emergency Medical Services
DX: F10.220 Alcohol dependence with intoxication, uncomplicated (principal); Y90.8 Blood alcohol level of 240 mg/100 ml or more; R45.1 Restlessness and agitation; F41.9 Anxiety disorder, unspecified; Z79.899 Other long term (current) drug therapy
CPT/HCPCS: 36415; 80048; 80076; 80307; 81001; 84702; 85025; 93005; 96372; 99285; J1200; J1630; J2060

== ENCOUNTER → 2024-04-05 18:28 | Outpatient (BNV) | payer OTHER, SELFPAY | PROVIDERS: Emergency Provider Emergency Medicine Emergency Medical Services; Visit Provider Internal Medicine Cardiovascular Disease | DX: R07.9 Chest pain, unspecified (principal) | CPT/HCPCS: 93010 ==